=== PATIENT | male | born 1990 | race Caucasian/White ===

== ENCOUNTER 2018-06-30 10:57 | Observation (INO) | payer SELFPAY ==
[~2018-06-30] VITALS: Ht 177.8 cm; Wt 77.5 kg
[2018-06-30] MEDS ORDERED: SODIUM CHLORIDE 0.9% 1,000ML IVBOLUS ONE ×2 (11:30→14:00)
[2018-06-30] MEDS ORDERED: METOPROLOL 1 MG/ML, 5ML IVPush PRN (11:30)
[2018-06-30] MEDS ORDERED: MORPHINE SULFATE 4 MG/ML, 1ML IVPush PRN (11:30)
[2018-06-30] MEDS ORDERED: SODIUM CHLORIDE FLUSH 10ML SYR IVF ONE (11:30)
[2018-06-30] MEDS ORDERED: LORazepam 2 MG/ML, 1ML IVPush ONE (12:00)
[2018-06-30 12:09] LABS: BASOPHILS # (AUTO) 0.02 x10^3/uL (0-0.1); BASOPHILS % (AUTO) 0 % (0-1); EOSINOPHILS # (AUTO) 0.07 x10^3/uL (0-0.4); EOSINOPHILS % (AUTO) 1 % (1-7); LYMPHOCYTES # (AUTO) 1.28 x10^3/uL (1-3.4); LYMPHOCYTES % (AUTO) 22 % (22-44); MD NO; MEAN CORPUSCULAR HEMOGLOBIN 31.3 pg (27.5-34.5); MEAN CORPUSCULAR HGB CONC 34.8 g/dL (33.2-36.2); MEAN CORPUSCULAR VOLUME 89.9 fL (81-97); MEAN PLATELET VOLUME 7.7 fL (7.4-10.4); MONOCYTES % (AUTO) 5 % (2-9); NEUTROPHILS # (AUTO) 4.02 x10^3/uL (1.8-6.8); NEUTROPHILS % (AUTO) 71 % (42-75); PLATELET COUNT 252 x10^3/uL (130-400); RED CELL DISTRIBUTION WIDTH 12.8 % (9.4-14.8)
[2018-06-30 12:20] LABS: ALANINE AMINOTRANSFERASE 37 U/L (12-78); ALBUMIN 4.3 g/dL (3.4-5.0); ANION GAP 6 mmol/L (5-15); CALCIUM 8.9 mg/dL (8.5-10.1); CHLORIDE 106 mmol/L (98-107); CREATININE 0.86 mg/dL (0.7-1.3)
[2018-06-30 12:25] LABS: ALKALINE PHOSPHATASE 102 U/L (45-117); BILIRUBIN,TOTAL 0.6 mg/dL (0.2-1.0); FREE T4 (FREE THYROXINE) 1.11 ng/dL (0.76-1.46); TOTAL PROTEIN 7.7 g/dL (6.4-8.2); TROPONIN I < 0.015 ng/mL (0.000-0.045)
[2018-06-30 12:30] LABS: THYROID STIMULATING HORMONE 0.707 mIU/L (0.358-3.740)
[2018-06-30] MEDS ORDERED: OMNIPAQUE 350 MG/ML, 100ML BOTTLE ONE (12:56)
[2018-06-30] MEDS ORDERED: LABETALOL 5MG/ML, 20ML IVPush PRN (15:00)
[2018-06-30] MEDS ORDERED: ENOXAPARIN 40 MG/0.4 ML SQ SCH (15:00)
[2018-06-30] MEDS ORDERED: KETOROLAC 30 MG/1 ML IV PRN (15:00)
[2018-06-30] MEDS ORDERED: ACETAMINOPHEN 325 MG TABLET PO PRN (15:00)
[2018-06-30] MEDS ORDERED: DOCUSATE 100 MG CAPSULE PO PRN (15:00)
[2018-06-30] MEDS ORDERED: POLYETHYLENE GLYCOL 17 GM PACKET PO PRN (15:00)
[2018-06-30] MEDS ORDERED: ONDANSETRON 2MG/ML, 2ML IVPush PRN (15:00)
[2018-06-30] MEDS ORDERED: BISACODYL 10 MG SUPP PR PRN (15:00)
[2018-06-30 15:27] LABS: AMPHETAMINE SCREEN, URINE Negative (Negative); BARBITURATE SCREEN, URINE Negative (Negative); BENZODIAZEPINE SCREEN, URINE Negative (Negative); CANNABINOID SCREEN, URINE Positive (Negative); COCAINE SCREEN, URINE Negative (Negative); METHADONE SCREEN, URINE Negative (Negative); OPIATE SCREEN, URINE Negative (Negative)
[2018-06-30 15:48] VITALS: BP 101/77
[2018-06-30 16:04] VITALS: BP_SYST 109; BP_SYST 120; BP_SYST 99; BP_DIAS 74; BP_DIAS 77; BP_DIAS 81
[2018-06-30 17:17] LABS: TROPONIN I < 0.015 ng/mL (0.000-0.045)
[2018-06-30] MEDS: SODIUM CHLORIDE 0.9% 1,000 ML IV SCH (17:31)
[2018-06-30] MEDS ORDERED: NITROGLYCERIN 0.4 MG/SPRAY SL PRN (18:30)
[2018-06-30] MEDS ORDERED: NITROGLYCERIN 0.4 MG BOTTLE (25 TABS) SL PRN (18:30)
[2018-06-30 18:32] VITALS: BP 112/79
[2018-06-30] MEDS ORDERED: DILTIAZEM 5 MG/ML, 5ML IVPush ONE (19:00)
[2018-06-30 19:03] VITALS: BP 134/84
[2018-06-30] MEDS ORDERED: DILTIAZEM 5 MG/ML, 10ML IVPush ONE (20:30)
[2018-06-30 23:03] LABS: TROPONIN I < 0.015 ng/mL (0.000-0.045)
[2018-07-01 01:46] VITALS: BP 97/61
[2018-07-01] MEDS: SODIUM CHLORIDE 0.9% 1,000 ML IV SCH (02:49)
[2018-07-01 04:44] LABS: BASOPHILS # (AUTO) 0.02 x10^3/uL (0-0.1); BASOPHILS % (AUTO) 0 % (0-1); EOSINOPHILS # (AUTO) 0.06 x10^3/uL (0-0.4); EOSINOPHILS % (AUTO) 1 % (1-7); LYMPHOCYTES # (AUTO) 1.64 x10^3/uL (1-3.4); LYMPHOCYTES % (AUTO) 26 % (22-44); MD NO; MEAN CORPUSCULAR HEMOGLOBIN 31.7 pg (27.5-34.5); MEAN CORPUSCULAR HGB CONC 34.6 g/dL (33.2-36.2); MEAN CORPUSCULAR VOLUME 91.8 fL (81-97); MEAN PLATELET VOLUME 7.9 fL (7.4-10.4); MONOCYTES % (AUTO) 6 % (2-9); NEUTROPHILS # (AUTO) 4.21 x10^3/uL (1.8-6.8); NEUTROPHILS % (AUTO) 66 % (42-75); PLATELET COUNT 212 x10^3/uL (130-400); RED BLOOD COUNT 4.74 x10^6/uL (4.38-5.82); RED CELL DISTRIBUTION WIDTH 12.4 % (9.4-14.8)
[2018-07-01 04:57] LABS: ANION GAP 5 mmol/L (5-15); CALCIUM 8.5 mg/dL (8.5-10.1); CHLORIDE 110 mmol/L (98-107); CREATININE 0.82 mg/dL (0.7-1.3)
[2018-07-01 07:11] VITALS: BP 110/73
[2018-07-01 07:55] VITALS: BP 114/73
[2018-07-01 07:57] VITALS: BP 116/82
[2018-07-01 08:00] VITALS: BP 124/95
[2018-07-01 12:16] VITALS: BP 122/83
== END 2018-07-01 16:04 | disposition home or self-care (01) ==
LOC: ED 13:05 → INTOOBSV 14:42 → 5SO 14:42
PROVIDERS: ADMIT Internal Medicine; ATTEND Internal Medicine
DX: I47.1 Supraventricular tachycardia (principal); R06.02 Shortness of breath; R07.81 Pleurodynia; F12.90 Cannabis use, unspecified, uncomplicated; F41.9 Anxiety disorder, unspecified; R09.1 Pleurisy; I95.1 Orthostatic hypotension; Z87.891 Personal history of nicotine dependence
CPT/HCPCS: 36415; 71045; 71275; 80048; 80053; 80307; 82533; 83605; 83735; 84439; 84443; 84484; 85025; 85379; 86308; 93005; 93306; 96374; 99285; G0378; J7030; Q9967

== ENCOUNTER 2019-08-26 20:31 | Emergency (ER) | payer MEDICAID, OTHER ==
[~2019-08-26] VITALS: Ht 177.8 cm; Wt 90.3 kg
--- NOTE | 2019-08-26 20:57 | NUR ---
"SMOKING MARIJUANA HELPS MY ANXIETY AND HEART SKIPPING"
--- NOTE | 2019-08-26 21:12 | NUR ---
TELE STRIP PRINTED SR. PLACED ON CHART.
[2019-08-26 21:47] LABS: BASOPHILS # (AUTO) 0.02 x10^3/uL (0-0.1); BASOPHILS % (AUTO) 0 % (0-1); EOSINOPHILS # (AUTO) 0.05 x10^3/uL (0-0.4); EOSINOPHILS % (AUTO) 1 % (1-7); LYMPHOCYTES # (AUTO) 2.18 x10^3/uL (1-3.4); LYMPHOCYTES % (AUTO) 33 % (22-44); MD NO; MEAN CORPUSCULAR HEMOGLOBIN 31.1 pg (27.5-34.5); MEAN CORPUSCULAR HGB CONC 33.9 g/dL (33.2-36.2); MEAN CORPUSCULAR VOLUME 91.9 fL (81-97); MEAN PLATELET VOLUME 8.2 fL (7.4-10.4); MONOCYTES # (AUTO) 0.47 x10^3/uL (0.2-0.8); MONOCYTES % (AUTO) 7 % (2-9); NEUTROPHILS # (AUTO) 3.86 x10^3/uL (1.8-6.8); NEUTROPHILS % (AUTO) 59 % (42-75); PLATELET COUNT 240 x10^3/uL (130-400); RED BLOOD COUNT 4.79 x10^6/uL (4.38-5.82); RED CELL DISTRIBUTION WIDTH 12.1 % (9.4-14.8)
[2019-08-26 21:50] LABS: ALANINE AMINOTRANSFERASE 48 U/L (12-78); ALBUMIN 3.7 g/dL (3.4-5.0); ANION GAP 4 mmol/L (5-15); CALCIUM 8.7 mg/dL (8.5-10.1); CHLORIDE 106 mmol/L (98-107); CREATININE 1.08 mg/dL (0.7-1.3)
[2019-08-26 21:55] LABS: ALKALINE PHOSPHATASE 78 U/L (45-117); BILIRUBIN,TOTAL 0.5 mg/dL (0.2-1.0); TOTAL PROTEIN 6.8 g/dL (6.4-8.2); TROPONIN I < 0.015 ng/mL (0.000-0.045)
[2019-08-26 23:45] VITALS: BP 103/67
--- NOTE | 2019-08-26 23:46 | NUR ---
D/C HOME W/ THE UNDERSTANDING TO AVOID CAFFEINE AND F/U OP W/ CARDIOLOGY.
== END 2019-08-26 23:48 | disposition home or self-care (01) ==
LOC: ED 23:21
DX: I48.92 Unspecified atrial flutter (principal)
CPT/HCPCS: 36415; 71045; 80053; 83735; 84443; 84484; 85025; 93005; 99284

== ENCOUNTER 2019-10-17 21:46 | Emergency (ER) | payer MEDICAID ==
[~2019-10-17] VITALS: Ht 180.3 cm; Wt 91.7 kg
[2019-10-17 22:34] LABS: RAPID INFLUENZA A Negative (Negative); RAPID INFLUENZA B Negative (Negative)
--- NOTE | 2019-10-18 00:05 | NUR ---
PT. TO ROOM FROM LOBBY.
--- NOTE | 2019-10-18 00:20 | NUR ---
PT. TO ED WITH C/O COUGH OFF/ON X [address] BRANNON AT BS TO EVAL PT. AND DISCUSS POC. ALL MONITORS PLACED.
[2019-10-18 00:27] VITALS: BP 134/85
--- NOTE | 2019-10-18 00:34 | NUR ---
PT. REPORTS TO DR. BRANNON, "MY HEART RATE IS ALWAYS HIGH LIKE THIS WHEN I COME IN HERE, I F/U WITH CARDIOLOGY BEFORE BECAUSE I WAS TOLD TO AND THEY SAID EVERYTHING WAS FINE, I WANT TO GO HOME IF I DON'T HAVE PNEUMONIA." PT. A&O X 4.
== END 2019-10-18 00:48 ==
LOC: ED 23:59
DX: J06.9 Acute upper respiratory infection, unspecified (principal); I48.92 Unspecified atrial flutter; Z87.891 Personal history of nicotine dependence
CPT/HCPCS: 71046; 87400; 93005; 99284

== ENCOUNTER 2019-11-17 20:35 | Emergency (ER) | payer MEDICAID ==
[~2019-11-17] VITALS: Ht 177.8 cm; Wt 99.2 kg
[2019-11-17 21:21] LABS: BASOPHILS # (AUTO) 0.04 x10^3/uL (0-0.1); BASOPHILS % (AUTO) 1 % (0-1); EOSINOPHILS # (AUTO) 0.07 x10^3/uL (0-0.4); EOSINOPHILS % (AUTO) 1 % (1-7); LYMPHOCYTES # (AUTO) 1.96 x10^3/uL (1-3.4); LYMPHOCYTES % (AUTO) 30 % (22-44); MD NO; MEAN CORPUSCULAR HEMOGLOBIN 31.4 pg (27.5-34.5); MEAN CORPUSCULAR HGB CONC 34.1 g/dL (33.2-36.2); MEAN CORPUSCULAR VOLUME 92.1 fL (81-97); MEAN PLATELET VOLUME 7.9 fL (7.4-10.4); MONOCYTES # (AUTO) 0.56 x10^3/uL (0.2-0.8); MONOCYTES % (AUTO) 9 % (2-9); NEUTROPHILS # (AUTO) 3.96 x10^3/uL (1.8-6.8); NEUTROPHILS % (AUTO) 60 % (42-75); PLATELET COUNT 233 x10^3/uL (130-400); RED BLOOD COUNT 4.94 x10^6/uL (4.38-5.82)
[2019-11-17] MEDS ORDERED: METOPROLOL 1 MG/ML, 5ML IVPush ONE ×2 (21:30→23:00)
[2019-11-17] MEDS ORDERED: SODIUM CHLORIDE 0.9% 1,000ML IVBOLUS ONE (21:30)
[2019-11-17] MEDS ORDERED: SODIUM CHLORIDE FLUSH 10ML SYR IVF ONE (21:30)
[2019-11-17 21:34] LABS: ALANINE AMINOTRANSFERASE 48 U/L (12-78); ALBUMIN 3.9 g/dL (3.4-5.0); ANION GAP 7 mmol/L (5-15); CALCIUM 8.2 mg/dL (8.5-10.1); CHLORIDE 104 mmol/L (98-107); CREATININE 1.02 mg/dL (0.7-1.3)
[2019-11-17 21:39] LABS: ALKALINE PHOSPHATASE 83 U/L (45-117); BILIRUBIN,TOTAL 0.4 mg/dL (0.2-1.0); TOTAL PROTEIN 7.2 g/dL (6.4-8.2); TROPONIN I < 0.015 ng/mL (0.000-0.045)
[2019-11-17 21:44] LABS: FREE T4 (FREE THYROXINE) 0.87 ng/dL (0.76-1.46)
[2019-11-17] MEDS ORDERED: METOPROLOL 1 MG/ML, 5ML ONE ×2 (21:54→22:40)
[2019-11-17 22:01] VITALS: BP 109/88
[2019-11-17] MEDS ORDERED: METOPROLOL TARTRATE 25 MG TABLET PO ONE (23:00)
--- NOTE | 2019-11-17 23:19 | NUR ---
PT HEARTRATE REGULAR IN THE 70S/80S SO SECOND DOES OF LOPRESSOR HELD. ER MD AREVALO NOTIFIED AND AGREES.
[2019-11-17] MEDS ORDERED: METOPROLOL TARTRATE 25 MG TABLET ONE (23:21)
== END 2019-11-18 00:04 | disposition home or self-care (01) ==
LOC: ED 22:30
DX: I49.1 Atrial premature depolarization (principal); I49.3 Ventricular premature depolarization; I47.1 Supraventricular tachycardia; R55 Syncope and collapse; I48.92 Unspecified atrial flutter; R00.2 Palpitations
CPT/HCPCS: 36415; 71045; 80053; 83735; 84439; 84443; 84484; 85025; 93005; 96361; 96374; 99284; J7030

== ENCOUNTER 2019-11-20 22:06 | Emergency (ER) | payer MEDICAID ==
[~2019-11-20] VITALS: Ht 177.8 cm; Wt 93.3 kg
[2019-11-20] MEDS ORDERED: SODIUM CHLORIDE FLUSH 10ML SYR IVF ONE (23:00)
[2019-11-20 23:26] LABS: BASOPHILS # (AUTO) 0.04 x10^3/uL (0-0.1); BASOPHILS % (AUTO) 1 % (0-1); EOSINOPHILS # (AUTO) 0.09 x10^3/uL (0-0.4); EOSINOPHILS % (AUTO) 1 % (1-7); LYMPHOCYTES # (AUTO) 2.44 x10^3/uL (1-3.4); LYMPHOCYTES % (AUTO) 33 % (22-44); MD NO; MEAN CORPUSCULAR HEMOGLOBIN 32.5 pg (27.5-34.5); MEAN CORPUSCULAR HGB CONC 35.4 g/dL (33.2-36.2); MEAN CORPUSCULAR VOLUME 91.7 fL (81-97); MONOCYTES # (AUTO) 0.59 x10^3/uL (0.2-0.8); MONOCYTES % (AUTO) 8 % (2-9); NEUTROPHILS # (AUTO) 4.31 x10^3/uL (1.8-6.8); NEUTROPHILS % (AUTO) 58 % (42-75); PLATELET COUNT 276 x10^3/uL (130-400); RED BLOOD COUNT 4.99 x10^6/uL (4.38-5.82)
[2019-11-20] MEDS ORDERED: METOPROLOL 1 MG/ML, 5ML IVPush ONE (23:30)
[2019-11-20 23:34] LABS: ALBUMIN 3.8 g/dL (3.4-5.0); ANION GAP 10 mmol/L (5-15); CHLORIDE 104 mmol/L (98-107)
[2019-11-20 23:41] LABS: ALKALINE PHOSPHATASE 90 U/L (45-117); BILIRUBIN,TOTAL 0.9 mg/dL (0.2-1.0); CREATININE 1.13 mg/dL (0.7-1.3); TROPONIN I < 0.015 ng/mL (0.000-0.045)
[2019-11-20] MEDS ORDERED: METOPROLOL 1 MG/ML, 5ML ONE (23:42)
--- NOTE | 2019-11-20 23:53 | NUR ---
PT TO ED FOR DYSRYTHMIA. PT SEEN HERE ON MONDAY FOR SAME, SAW CARDS ON MON, HAS APT C ELECTRO THUR AT 1545 TO CHANDA AN ABLATION. PT HR 85-155, POSSIBLE PSVT/A FLUTTER/ST. MULT EKG PERFORMED. ON MONITOR. AT BS. IV ESTB. LABS DRAWN. BP WNL. PT STATES MILD CP. CALL LIGHT INREACH. FAMILY AT BS. WILL CTM.
[2019-11-21] MEDS ORDERED: METOPROLOL 1 MG/ML, 5ML IVPush ONE (00:30)
[2019-11-21] MEDS ORDERED: METOPROLOL 1 MG/ML, 5ML ONE (00:40)
[2019-11-21 00:45] LABS: ALANINE AMINOTRANSFERASE 55 U/L (12-78); CALCIUM 8.7 mg/dL (8.5-10.1); TOTAL PROTEIN 7.3 g/dL (6.4-8.2)
[2019-11-21 00:48] LABS: T4 (THYROXINE) 7.7 mcg/dL (4.5-12.1)
[2019-11-21 01:17] VITALS: BP 102/54
[2019-12-09] MEDS ORDERED: METOPROLOL PO (11:43)
== END 2019-11-21 01:20 | disposition home or self-care (01) ==
LOC: ED 23:45
DX: R00.2 Palpitations (principal); I49.1 Atrial premature depolarization; I49.3 Ventricular premature depolarization; R94.31 Abnormal electrocardiogram [ECG] [EKG]; I48.92 Unspecified atrial flutter
CPT/HCPCS: 36415; 71045; 80053; 83735; 84436; 84443; 84484; 85025; 93005; 96374; 96376

== ENCOUNTER 2019-12-10 06:15 | Observation (INO) | payer MEDICAID ==
[2019-12-09 11:38] VITALS: BP 145/83
[2019-12-09 12:12] LABS: ANION GAP 7 mmol/L (5-15); CALCIUM 9.2 mg/dL (8.5-10.1); CHLORIDE 108 mmol/L (98-107); CREATININE 0.94 mg/dL (0.7-1.3)
[2019-12-09 12:13] LABS: BASOPHILS # (AUTO) 0.02 x10^3/uL (0-0.1); BASOPHILS % (AUTO) 0 % (0-1); EOSINOPHILS # (AUTO) 0.09 x10^3/uL (0-0.4); EOSINOPHILS % (AUTO) 1 % (1-7); LYMPHOCYTES # (AUTO) 1.64 x10^3/uL (1-3.4); LYMPHOCYTES % (AUTO) 26 % (22-44); MD NO; MEAN CORPUSCULAR HEMOGLOBIN 31.4 pg (27.5-34.5); MEAN CORPUSCULAR HGB CONC 34.5 g/dL (33.2-36.2); MEAN CORPUSCULAR VOLUME 91.1 fL (81-97); MEAN PLATELET VOLUME 8.1 fL (7.4-10.4); MONOCYTES # (AUTO) 0.47 x10^3/uL (0.2-0.8); MONOCYTES % (AUTO) 7 % (2-9); NEUTROPHILS % (AUTO) 65 % (42-75); PLATELET COUNT 252 x10^3/uL (130-400); RED BLOOD COUNT 5.28 x10^6/uL (4.38-5.82); RED CELL DISTRIBUTION WIDTH 13.1 % (9.4-14.8)
[~2019-12-10] VITALS: Ht 177.8 cm; Wt 97.2 kg
[~2019-12-10 06:15] MED LIST: METOPROLOL PO
[2019-12-10] MEDS ORDERED: SODIUM CHLORIDE 0.9% 1,000 ML IV SCH (06:40)
[2019-12-10] MEDS ORDERED: ISOPROTERENOL 0.2MG/ML, 5ML ONE (07:07)
[2019-12-10] MEDS ORDERED: LIDOCAINE 1%, 20ML ONE (07:07)
[2019-12-10] MEDS ORDERED: MIDAZOLAM 1 MG/ML, 5ML ONE ×2 (07:57→10:00)
[2019-12-10] MEDS ORDERED: FENTANYL PF 100 MCG/2ML ONE (07:58)
[2019-12-10] MEDS ORDERED: FENTANYL PF 250 MCG/5ML ONE (10:00)
[2019-12-10] MEDS ORDERED: DIPHENHYDRAMINE 50 MG/ML, 1ML ONE (10:11)
[2019-12-10] MEDS ORDERED: HEPARIN 1,000 UNITS/ML, 10ML ONE (10:13)
[2019-12-10] MEDS ORDERED: ACETAMINOPHEN 325 MG TABLET PO PRN (12:00)
[2019-12-10 12:45] VITALS: BP 115/80
[2019-12-10 13:25] VITALS: BP 113/75
[2019-12-10 19:56] VITALS: BP 133/83
[2019-12-10] MEDS ORDERED: ZOLPIDEM 5MG TABLET PO ONE (21:00)
[2019-12-11 03:52] VITALS: BP 135/85
[2019-12-11 07:52] VITALS: BP 127/82
[2019-12-11] MEDS ORDERED: ASPI-515 PO (08:17)
[2019-12-11] MEDS ORDERED: ASPIRIN 81 MG TABLET CHEW PO SCH (09:00)
== END 2019-12-11 09:41 | disposition home or self-care (01) ==
LOC: CACL 06:15 → 5SO 11:53 → CACL 13:21 → DCLOUNGE 12-11 09:37
PROVIDERS: ADMIT Internal Medicine Cardiovascular Disease; ATTEND Internal Medicine Cardiovascular Disease
DX: I47.1 Supraventricular tachycardia (principal); R00.2 Palpitations; F12.10 Cannabis abuse, uncomplicated; Z72.0 Tobacco use; Z79.899 Other long term (current) drug therapy
CPT/HCPCS: 36415; 71046; 80048; 85025; 93462; 93613; 93623; 93653; 93662; 99156; 99157; C1730; C1732; C1759; C1766; C1893; C1894; C2630; G0378; J1200; J1644; J2250; J3010; J3490; 85347

== ENCOUNTER 2020-01-21 09:19 | Emergency (ER) | payer SELFPAY ==
[~2020-01-21] VITALS: Ht 177.8 cm; Wt 99.7 kg
[~2020-01-21 09:19] MED LIST changes: +ASPI-515 PO
--- NOTE | 2020-01-21 09:46 | NUR ---
C/O: CARDIAC ABLATION BY CHALLAPAJAIR, HR 150'S YESTERDAY, TOOK METORPROLOL YESTERDAY AND 20 MG PRIOR TO ARRIVAL. CP. per triage note
--- NOTE | 2020-01-21 09:59 | NUR ---
iv was started vss updated pt's heart rhythm is sr st sa and aflutter all over the place. pt is aaox4 pt is waiting for md oates currently hemodynamic stable
--- NOTE | 2020-01-21 10:29 | NUR ---
report received from task RN Vianney at bedside. pt presents to ED with c/o CP worse with exertion, and generalized weakness x 1.5 weeks. pt states he had an ablasion 12/10/19, pt states "I was good for about a month, but the last week and a half my chest pain has been really bad. I can't even move without my heart rate going to 150. I've also gained 30 lbs this month." pt is a&o, resps even and unlabored, all monitors in place. pt is alerternating between NSR rate 80s and runs of tachycardia rate 130s with any movement. CHRISTI Dai at bedside for initial assessment.
[2020-01-21] MEDS ORDERED: SODIUM CHLORIDE FLUSH 10ML SYR IVF ONE (11:00)
--- NOTE | 2020-01-21 11:15 | NUR ---
Pt hypotensive 75/55 per bp machine, RN rechecked bp manually, hearing only spb 110, unable to auscultate diastolic bp measurement. pt a&ox4, resps even and unlabored, pt alternating between narrow complex tachycardia rate 130s and NSR rate 60-80. pt notes CP increased. EDMD Dai notified. ordered 1L NS bolus, NS bolus initiated.
[2020-01-21 11:30] LABS: BASOPHILS # (AUTO) 0.02 x10^3/uL (0-0.1); BASOPHILS % (AUTO) 0 % (0-1); EOSINOPHILS # (AUTO) 0.07 x10^3/uL (0-0.4); EOSINOPHILS % (AUTO) 1 % (1-7); LYMPHOCYTES # (AUTO) 1.52 x10^3/uL (1-3.4); LYMPHOCYTES % (AUTO) 27 % (22-44); MD NO; MEAN CORPUSCULAR HEMOGLOBIN 31.2 pg (27.5-34.5); MEAN CORPUSCULAR HGB CONC 34.3 g/dL (33.2-36.2); MEAN CORPUSCULAR VOLUME 90.8 fL (81-97); MEAN PLATELET VOLUME 8.7 fL (7.4-10.4); MONOCYTES % (AUTO) 9 % (2-9); NEUTROPHILS # (AUTO) 3.52 x10^3/uL (1.8-6.8); NEUTROPHILS % (AUTO) 63 % (42-75); PLATELET COUNT 234 x10^3/uL (130-400); RED BLOOD COUNT 5.42 x10^6/uL (4.38-5.82); RED CELL DISTRIBUTION WIDTH 12.8 % (9.4-14.8)
--- NOTE | 2020-01-21 11:33 | NUR ---
DR FABIAN SPOKE WITH DR KING
--- NOTE | 2020-01-21 11:37 | NUR ---
MD Dai speaking with supervisor floor assembly for recommendations.
[2020-01-21 11:41] LABS: INTERNATIONAL NORMALIZED RATIO 1.01 (0.93-1.1); PROTHROMBIN TIME 10.7 Seconds (9.6-11.5)
[2020-01-21 11:45] LABS: ALANINE AMINOTRANSFERASE 77 U/L (12-78); ALBUMIN 4.2 g/dL (3.4-5.0); ANION GAP 6 mmol/L (5-15); CHLORIDE 105 mmol/L (98-107); CREATININE 1.09 mg/dL (0.7-1.3)
[2020-01-21 11:50] LABS: ALKALINE PHOSPHATASE 102 U/L (45-117); BILIRUBIN,TOTAL 0.7 mg/dL (0.2-1.0); TOTAL PROTEIN 8.1 g/dL (6.4-8.2); TROPONIN I < 0.015 ng/mL (0.000-0.045)
--- NOTE | 2020-01-21 11:54 | NUR ---
BP MAINTAINING, NSR RATE 60'S AT THIS TIME. AWAITING FURTHER ORDERS, REPORT GIVEN TO BREAK RN BILL.
[2020-01-21] MEDS ORDERED: SODIUM CHLORIDE 0.9% 1,000ML IVBOLUS ONE (12:00)
--- NOTE | 2020-01-21 12:27 | NUR ---
DR. SANTOYO AT BEDSIDE.
--- NOTE | 2020-01-21 12:52 | NUR ---
REPORT RECEIVED FROM HERMINIO KANG AFTER MEAL BREAK TAKEN. PT IS RESTING ON GURNEY, A&O, RESPS EVEN AND UNLABORED. NSR ON CASINO ATTENDANT WITH NO ECTOPY, RATE 60'S. PT STATES "I FEEL MUCH BETTER." 1L NS COMPLETED. AWAITING FURTHER ORDERS AT THIS TIME.
[2020-01-21] MEDS ORDERED: METOPROLOL TARTRATE 25 MG TAB ONE (13:42)
--- NOTE | 2020-01-21 13:48 | NUR ---
THIS RN ATTEMPTED TO DC PATIENT, UPON STANDING, HR INCREAASES TO 130S, NARROW COMPLEX TACHYCARDIA. REPEAT EKG TAKEN BY EDT WHILE PT IN THIS POSITION, REVIEWED BY CHRISTI FABIAN. ORDERED METOPROLOL TARTRATE 25MG TO BE ADMINISTERED PO ONCE NOW, PRIOR TO DC.
--- NOTE | 2020-01-21 13:50 | NUR ---
ORDER CLARIFIED WITH MD FABIAN, METORPOLOL SUCCINATE ORDERED IN ERROR, INTENDS PT TO HAVE 25 MG METOPROLOL TARTRATE PO ONCE. PT MEDICATED APPROPRIATELY PER EMAR.
[2020-01-21] MEDS ORDERED: METOPROLOL TARTRATE 25 MG TAB PO ONE (14:00)
[2020-01-21 14:26] VITALS: BP 97/58
--- NOTE | 2020-01-21 14:27 | NUR ---
EDMD RUI AT BEDSIDE AT THIS TIME TO RECHECK AND EDUCATE PT REGARDING POC AND DC INSTRUCTIONS.
[2020-01-22] MEDS ORDERED: METOPROLOL SUCCINATE 25 MG TAB.ER.24H PO SCH (06:00)
== END 2020-01-21 15:00 | disposition home or self-care (01) ==
LOC: ED 12:34
DX: I49.9 Cardiac arrhythmia, unspecified (principal); I48.92 Unspecified atrial flutter; I51.7 Cardiomegaly
CPT/HCPCS: 36415; 71045; 80053; 84484; 85025; 85610; 93005; 99285; J7030

== ENCOUNTER 2021-07-18 19:07 | Emergency (ER) | payer MEDICAID ==
[~2021-07-18] VITALS: Ht 180.3 cm; Wt 92.3 kg
[~2021-07-18 19:07] MED LIST changes: -ASPI-515 PO; +ASPI-963 PO
[2021-07-18 19:09] VITALS: BP 116/72
--- NOTE | 2021-07-18 19:18 | NUR ---
UNABLE TO GET TEMPERATURE IN TRIAGE. ATTMETED ORAL MULTIPLE TIMES. ATTEMPTED AXILLARY. PT STATES "I KNOW I DONT HAVE A FEVER. I JUST FEEL SICK"
[2021-07-18 20:06] LABS: BASOPHILS % (AUTO) 0 % (0-1); EOSINOPHILS % (AUTO) 0 % (1-7); LYMPHOCYTES % (AUTO) 4 % (22-44); MEAN CORPUSCULAR HEMOGLOBIN 31.5 pg (27.5-34.5); MEAN CORPUSCULAR HGB CONC 35.4 g/dL (33.2-36.2); MEAN PLATELET VOLUME 7.6 fL (7.4-10.4); MONOCYTES % (AUTO) 7 % (2-9); NEUTROPHILS % (AUTO) 89 % (42-75); PLATELET COUNT 265 x10^3/uL (130-400); RED BLOOD COUNT 5.83 x10^6/uL (4.38-5.82); RED CELL DISTRIBUTION WIDTH 12.7 % (9.4-14.8)
[2021-07-18 20:15] LABS: ALBUMIN 4.5 g/dL (3.4-5.0); ANION GAP 12 mmol/L (5-15); CALCIUM 9.6 mg/dL (8.5-10.1); CHLORIDE 106 mmol/L (98-107); CREATININE 0.95 mg/dL (0.7-1.3)
[2021-07-18] MEDS ORDERED: ONDANSETRON ODT 8 MG PO ONE (20:30)
[2021-07-18] MEDS ORDERED: FAMOTIDINE 20 MG TABLET PO ONE (20:30)
[2021-07-18] MEDS ORDERED: MAALOX/HYOSCYAMINE/LIDOCAINE 45 ML BTL PO ONE (20:30)
--- NOTE | 2021-07-18 23:08 | NUR ---
NOT IN LOBBY
--- NOTE | 2021-07-18 23:14 | NUR ---
NOT IN LOBBY
--- NOTE | 2021-07-18 23:27 | NUR ---
NOT IN LOBBY
== END 2021-07-18 23:29 | disposition left against medical advice (07) ==
LOC: ED 20:00
DX: R11.10 Vomiting, unspecified (principal); R19.7 Diarrhea, unspecified
CPT/HCPCS: 36415; 74021; 80048; 82040; 83690; 85025; 99284